=== PATIENT | male | born 1960 | race Caucasian/White ===

== ENCOUNTER 2022-11-27 18:19 | Inpatient (IN) | payer OTHER ==
[~2022-11-27] VITALS: Ht 162.6 cm; Wt 63.5 kg
[2022-11-27] MEDS: NACL 0.9% 1,000 ML IV SCH (02:38)
[2022-11-27 18:30] VITALS: BP 135/99
--- NOTE | 2022-11-27 18:35 | NUR ---
ABSCESS RIGHT SHOULDER X 3 DAYS WITH 8/10 PAIN. ALSO ENDORSING CHILLS AND INTERMITTENT FEVERS. PMH: HTN, HEP C MEDS: METHADONE
[2022-11-27] MEDS ORDERED: NACL 0.9% 2,000 ML IV ONE (21:00)
[2022-11-27 21:29] LABS: BASOPHILS % (AUTO) 0.3 % (0.0-2.0); HEMATOCRIT 44.2 % (36-52); HEMOGLOBIN 15.1 g/dL (12.0-18.0); LYMPHOCYTES % (AUTO) 5.4 % (20.5-51.1); MEAN CORPUSCULAR HEMOGLOBIN 31 pg (27-31); MEAN CORPUSCULAR HGB CONC 34 g/dL (33-37); MEAN CORPUSCULAR VOLUME 89.8 fL (80-94); MONOCYTES # (AUTO) 1.4 K/uL (0.8-1.0); NEUTROPHILS # (AUTO) 15.4 K/uL (1.8-7.7); NEUTROPHILS % (AUTO) 86.3 % (42.2-75.2); PLATELET COUNT (AUTO) 267 K/uL (140-450); RED BLOOD CELL COUNT(AUTO) 4.92 MIL/uL (4.20-6.10); RED CELL DISTRIBUTION WIDTH 13.1 % (11.6-13.7); WHITE BLOOD COUNT (AUTO) 17.9 K/uL (4.8-10.8)
--- NOTE | 2022-11-27 21:39 | NUR ---
PT TAKEN TO BED 7
[2022-11-27 21:48] LABS: ALBUMIN 3.6 g/dL (3.4-5.0); ANION GAP 18.1 (8-16); CARBON DIOXIDE 25.6 mmol/L (21-32); CREATININE 1.2 mg/dL (0.6-1.3); POTASSIUM 3.7 mmol/L (3.5-5.1); TOTAL BILIRUBIN 1.8 mg/dL (0.0-1.0)
--- NOTE | 2022-11-27 21:50 | NUR ---
62 Y/O F presents with abscess of R upper arm with pain 10/10. pt stated the sweeling of site feels like pressure x 3days. pt stated he is a active IV drug user and last time used was x1 week ago. pt stated he uses heroin and only heroin. pt is A&Ox4, skin intact, respirations even and unlabored. pt states he uses methadone 41mg daily. pmh- htn, hep C NKA meds-methadone
[2022-11-27] MEDS ORDERED: PIPERACILLIN/TAZOBACTAM 3.375 GM in DEXTROSE 5% 50 ML IV ONE (22:00)
[2022-11-27] MEDS ORDERED: VANCOMYCIN PER PHARMACY MC PRN (22:00)
[2022-11-27] MEDS ORDERED: VANCOMYCIN 1GM/DEXT 5% PREMIX 200 ML IV ONE (22:00)
[2022-11-27] MEDS ORDERED: VANCOMYCIN 1,000 MG VIAL ONE (22:31)
[2022-11-27] MEDS ORDERED: PIPERACILLIN/TAZOBACTAM 3.375 GM VIAL IV ONE (22:31)
--- NOTE | 2022-11-27 22:35 | NUR ---
PT RETURN FROM CT
[2022-11-27] MEDS ORDERED: DOCUSATE SODIUM 100 MG GELCAP PO PRN (23:25)
[2022-11-27] MEDS ORDERED: guaiFENesin DM 200/20 MG-10 ML 10 ML UDC PO PRN (23:25)
[2022-11-27] MEDS ORDERED: POTASSIUM CHLORIDE 10 MEQ TABER PO PRN (23:25)
[2022-11-27] MEDS ORDERED: ONDANSETRON 4 MG/2 ML VIAL IM/IVP PRN (23:25)
[2022-11-27] MEDS ORDERED: ACETAMINOPHEN 325 MG TAB PO PRN (23:25)
[2022-11-27] MEDS ORDERED: ZOLPIDEM 5 MG TAB PO PRN (23:25)
[2022-11-28 00:07] LABS: PROTHROMBIN TIME 11.5 secs (10.8-13.4)
[2022-11-28 00:20] LABS: AMYLASE 78 U/L (25-115); CHOL/HDL RATIO 2.1 (1-4.5); FREE T4 (FREE THYROXINE) 1.37 ng/dL (0.76-1.46); HDL CHOLESTEROL 55 mg/dL (40-60); LDL (CALC) 46 mg/dL (60-100); LIPASE 73 U/L (73-393); MAGNESIUM 1.9 mg/dL (1.8-2.4); PHOSPHORUS 3.6 mg/dL (2.5-4.9); THYROID STIMULATING HORMONE 2.92 uIU/mL (0.34-3.74); TRIGLYCERIDES 87 mg/dL (30-150)
--- NOTE | 2022-11-28 00:40 | NUR ---
pt ambulatory to restroom, back in room and on blending operator
[2022-11-28] MEDS ORDERED: METH-1550 PO (01:55)
--- NOTE | 2022-11-28 02:01 | NUR ---
pt ambulatory to restroom, back in room and on mixer operator helper hot metal
--- NOTE | 2022-11-28 02:25 | NUR ---
Patient will be admitted to care of Dr. Candelaria. Admited to Tele. Will go to [id number]. Belongings list completed. Report to Pat GARIBAY.
[2022-11-28 02:30] VITALS: BP 134/85
--- NOTE | 2022-11-28 02:30 | NUR ---
RECEIVED PT FROM ER. PATIENT IS AWAKE,ALERT AND ORIENTED X 4, AMBULATED FROM GURNEY TO THE BED WITH STEADY GAIT. COMPLAINING OF RIGHT ARM/SHOULDER PAIN, WILL MEDICATE ORDERED, REDNESS AND SWELLIGN NOTER ON THE RIGHT UPPER ARM/RIGHT SHOULDER, PICTURE TAKEN AND PLACED IN THE CHART. SKIN WARM AND DRY TO TOUCH. IVF STARTED IN THE LEFT AC ORDERED. BED IN THE LOWEST AND LOCKED POSITION FOR SAFETY, CALL LIGHT GIVEN TO PT, INSTRUCTION ON USE PROVIDED, ENCOURAGED TO CALL IF ASSISTANCE IS NEEDED. PT VERBALLY ACKNOWLEDGED.
[2022-11-28] MEDS: HYDROcodone/APAP 7.5/325 MG 1 TAB PO PRN ×4 (02:39→18:42)
--- NOTE | 2022-11-28 03:10 | NUR ---
The patient's care was reviewed and supervised by Marilyn Mijares RN.
--- NOTE | 2022-11-28 03:39 | NUR ---
RE-ASSESSED FOR PAIN, PT CURRENTLY ASLEEP. NO S/SX OF PAIN NOR DISCOMFORT.
[2022-11-28 04:00] VITALS: BP 132/84
[2022-11-28 04:29] LABS: APPEARANCE,URINE CLEAR (CLEAR); BILIRUBIN,URINE NEGATIVE (NEGATIVE); BLOOD, URINE NEGATIVE (NEGATIVE); COLOR,URINE YELLOW (YELLOW); LEUKOCYTE ESTERASE ,URINE NEGATIVE (NEGATIVE); NITRITE, URINE NEGATIVE (NEGATIVE); UGLUCOSE NEGATIVE (NEGATIVE)
[2022-11-28 04:43] LABS: BARBITURATE, URINE NEGATIVE ng/ml (NEG <=200); BENZODIAZEPINE, URINE NEGATIVE ng/mL (NEG <=200); CANNABINOID, URINE NEGATIVE ng/mL (NEG <=50); COCAINE, URINE NEGATIVE ng/mL (NEG <=300); OPIATE, URINE POSITIVE ng/mL (NEG <=2000); PHENCYCLIDINE SCREEN,URINE NEGATIVE ng/mL (NEG <=25)
[2022-11-28] MEDS ORDERED: PIPERACILLIN/TAZOBACTAM 3.375 GM VIAL IV ONE (05:19)
[2022-11-28] MEDS: PIPERACILLIN/TAZOBACTAM 3.375 GM in DEXTROSE 5% 50 ML IV SCH ×4 (05:21→23:06)
--- NOTE | 2022-11-28 05:22 | NUR ---
SPOKE WITH PITA OF LAB REGARDING REPEAT LACTIC ACID, WILL BE DRAWN WITH AM LABS, TRIED IN ER BUT UNSUCCESSFUL. SCREW MACHINE HAND MADE AWARE.
--- NOTE | 2022-11-28 06:23 | NUR ---
PATIENT IS AWAKE, ALERT AND ORIENTED X 4. PAIN OF 8/10 ON THE RIGHT ARM/SHOULDER, MEDIATED ORDERED. ALL NEEDS ATTENDED TO. SAFETY PRECAUTIONS MAINTAINED DURING THE SHIFT, CALL LIGHT REMAINS WITHIN REACH.
--- NOTE | 2022-11-28 07:05 | NUR ---
RECEIVED REPORT FROM TEST ENG NURSE FOR CONTINUITY OF CARE. PT STABLE AT THIS TIME RESTING IN THE BED.
[2022-11-28 07:11] LABS: ANION GAP 12.7 (8-16); CARBON DIOXIDE 26.1 mmol/L (21-32); CREATININE 1.1 mg/dL (0.6-1.3); POTASSIUM 3.8 mmol/L (3.5-5.1)
[2022-11-28 07:21] LABS: BASOPHILS % (AUTO) 0.1 % (0.0-2.0); EOSINOPHILS % (AUTO) 0.1 % (0.0-4.0); HEMATOCRIT 41.1 % (36-52); HEMOGLOBIN 13.9 g/dL (12.0-18.0); LYMPHOCYTES # (AUTO) 0.9 K/uL (2.0-11.5); MEAN CORPUSCULAR HEMOGLOBIN 30 pg (27-31); MEAN CORPUSCULAR HGB CONC 34 g/dL (33-37); MONOCYTES % (AUTO) 7.3 % (1.7-9.3); NEUTROPHILS # (AUTO) 12.4 K/uL (1.8-7.7); NEUTROPHILS % (AUTO) 86.5 % (42.2-75.2); PLATELET COUNT (AUTO) 221 K/uL (140-450); RED BLOOD CELL COUNT(AUTO) 4.57 MIL/uL (4.20-6.10); RED CELL DISTRIBUTION WIDTH 13.2 % (11.6-13.7); WHITE BLOOD COUNT (AUTO) 14.3 K/uL (4.8-10.8)
--- NOTE | 2022-11-28 07:25 | NUR ---
ENDORSED TO MICA MINER NURSE FOR CONTINUITY OF CARE. PT STABLE AT THIS TIME. Addendum: 11/28/22 at 2010 by Wendy Medina RN ENDORSED AT 1924
[2022-11-28 08:00] VITALS: BP 145/84
[2022-11-28] MEDS: PANTOPRAZOLE 40 MG TABEC PO SCH (08:47)
[2022-11-28] MEDS: NACL 0.9% 1,000 ML IV SCH ×2 (08:47→16:26)
--- NOTE | 2022-11-28 09:15 | NUR ---
PATIENT HAS BEEN SCREENED AND CATEGORIZED LOW NUTRITION RISK. PATIENT WILL BE SEEN WITHIN 7 DAYS OF ADMISSION. 12/04/[address] CANDIS KOHLER RD
[2022-11-28] MEDS ORDERED: METHADONE HCL ORAL SOLN 10 MG/ML SOLN PO SCH (10:00)
[2022-11-28 12:00] VITALS: BP 94/64
--- NOTE | 2022-11-28 12:30 | NUR ---
DC PLANN[age] YRS OLD MALE PATIENT WAS ADMITTED FROM HOME WITH A DX OF SEPSIS AND ABSCESS. PATIENT HAS A HX OF HEP C , IV DRUG USE AND HTN. PATIENT HAS RIGHT UPPER ARE ABSCESS. CT JEOVANNY SHOWED FLUID COLLECTION AND ABSCESS . CXR NORMAL. RAPID COVID TEST NEGATIVE. BLOOD CULTURE PENDING. ADMINISTERED IVF, IV ABX ZOSYN AND VANCOMYCIN. CONSULTED WITH SURGEON FOR POSSIBLE I&D. DC PLAN TO GO HOME WHEN STABLE. CM TO FOLLOW
[2022-11-28 16:00] VITALS: BP 103/70
--- NOTE | 2022-11-28 19:30 | NUR ---
RECEIVED REPORT FROM DAY SHIFT NURSE TANIA FOR CONTINUITY OF CARE. PATIENT IS A&O X4. PATIENT IS ON ROOM AIR, BREATHING IS NORMAL WITH SYMMETRICAL RISE AND FALL OF CHEST. IV IS AN 18G LAC, RUNNING NS 120. PATIENT IS SITTING HIGH-FOWLERS POSITION. BED IS IN LOWEST POSITION, WHEELS LOCKED, CALL LIGHT IN PLACE. WILL CONTINUE TO OBSERVE PATIENT.
[2022-11-28 20:00] VITALS: BP 90/56
--- NOTE | 2022-11-28 20:03 | NUR ---
PATIENT HAD A FEVER OF 100.5; CHECKED PATIENT'S CHART, TYLENOL WAS APPROPRIATE TO ADMINISTER. ADMINISTERED TYLENOL TO PATIENT. MEDICATION ADMINISTERED SUCCESSFULLY WITHOUT ANY ISSUES IN SWALLOWING. WILL CONTINUE TO OBSERVE PATIENT.
--- NOTE | 2022-11-28 22:20 | NUR ---
DR. YESSICA KOHLER CALLED AND ASKED ABOUT PATIENT'S LABS FOR PROCEDURE IN THE MORNING. INFORMED THE DR. OF PATIENT'S BLOOD CHEMISTRY AND HEMATOLOGY RESULTS; WELL URINE RESULTS. DR. KOHLER THANKED ME AND GAVE NO NEW ORDERS.
[2022-11-29] VITALS: BP 93/54
--- NOTE | 2022-11-29 00:04 | NUR ---
0000 IVPB WAS ADMINISTERED SUCCESSFULLY WITHOUT ANY ISSUES WITH IV AND NO SIGN OF ALLERGIC REACTION. FOOD AND DRINK WERE REMOVED FROM ROOM, PATIENT IS NOW NPO FOR PROCEDURE. PATIENT IS IN BED SITTING IN HIGH-FOWLERS POSITION. BED IS IN LOWEST POSITION, WHEELS LOCKED, CALL LIGHT IN PLACE. PATIENT'S TEMPERATURE IS 97.5, ADMINISTRATION OF TYLENOL AND INTERVENTIONS WERE EFFECTIVE. WILL CONTINUE TO OBSERVE PATIENT.
[2022-11-29] MEDS: NACL 0.9% 1,000 ML IV SCH ×3 (00:25→12:08)
[2022-11-29 04:00] VITALS: BP 103/65
--- NOTE | 2022-11-29 05:00 | NUR ---
PATIENT HAS SLEPT OFF AND ON THROUGHOUT THE NIGHT. BREATHING IS NORMAL WITH SYMMETRICAL RISE AND FALL OF CHEST. IV IS STILL RUNNING NS 120. BED IS IN LOWEST POSITION, WHEELS LOCKED, CALL LIGHT IN PLACE. WILL CONTINUE TO OBSERVE PATIENT.
[2022-11-29] MEDS: PIPERACILLIN/TAZOBACTAM 3.375 GM in DEXTROSE 5% 50 ML IV SCH ×3 (05:01→17:43)
[2022-11-29] MEDS ORDERED: PIPERACILLIN/TAZOBACTAM 3.375 GM in DEXTROSE 5% 50 ML IV SCH (06:00)
[2022-11-29 06:52] LABS: BASOPHILS % (AUTO) 0.2 % (0.0-2.0); EOSINOPHILS # (AUTO) 0.1 K/uL (0-0.4); EOSINOPHILS % (AUTO) 0.5 % (0.0-4.0); HEMATOCRIT 35.2 % (36-52); HEMOGLOBIN 12.2 g/dL (12.0-18.0); LYMPHOCYTES # (AUTO) 1.4 K/uL (2.0-11.5); LYMPHOCYTES % (AUTO) 8.1 % (20.5-51.1); MEAN CORPUSCULAR HEMOGLOBIN 30 pg (27-31); MEAN CORPUSCULAR HGB CONC 35 g/dL (33-37); MEAN CORPUSCULAR VOLUME 87.8 fL (80-94); MONOCYTES # (AUTO) 1.6 K/uL (0.8-1.0); NEUTROPHILS # (AUTO) 14.6 K/uL (1.8-7.7); NEUTROPHILS % (AUTO) 82.2 % (42.2-75.2); PLATELET COUNT (AUTO) 175 K/uL (140-450); RED BLOOD CELL COUNT(AUTO) 4.01 MIL/uL (4.20-6.10); RED CELL DISTRIBUTION WIDTH 12.9 % (11.6-13.7); WHITE BLOOD COUNT (AUTO) 17.8 K/uL (4.8-10.8)
[2022-11-29 06:57] LABS: ANION GAP 11.6 (8-16); CARBON DIOXIDE 23.2 mmol/L (21-32); CREATININE 1.1 mg/dL (0.6-1.3); POTASSIUM 3.8 mmol/L (3.5-5.1)
--- NOTE | 2022-11-29 07:18 | NUR ---
ENDORSED TO DAY SHIFT NURSE DÍAZ FOR CONTINUITY OF CARE. PATIENT IS STABLE.
[2022-11-29 08:00] VITALS: BP 119/68
--- NOTE | 2022-11-29 08:11 | NUR ---
OR NURSES ON UNIT TO TAKE PATIENT FOR SURGERY. WILL CONTINUE TO MONITOR WHEN PATIENT RETURNS ON UNIT.
[2022-11-29] MEDS ORDERED: BUPIVACAINE-MPF 0.25% 30 ML VIAL INJ ONE (08:14)
[2022-11-29] MEDS ORDERED: SEVOFLURANE 250 ML BTL INH ONE (08:23)
[2022-11-29] MEDS ORDERED: HYDROmorphone 1 MG/ML AMP IVP PRN ×2 (08:25→09:10)
[2022-11-29] MEDS ORDERED: HYDROcodone/APAP 5/325 MG 1 TAB TAB PO PRN (08:25)
[2022-11-29] MEDS ORDERED: fentaNYL citrate 0.05 MG/ML VIAL ONE (08:31)
[2022-11-29] MEDS ORDERED: PROPOFOL 200 MG/20 ML VIAL IV ONE (08:51)
[2022-11-29] MEDS ORDERED: ONDANSETRON 4 MG/2 ML VIAL ONE (08:51)
[2022-11-29] MEDS ORDERED: KETOROLAC 30 MG/ML VIAL ONE (08:51)
[2022-11-29] MEDS ORDERED: METOCLOPRAMIDE 10 MG/2 ML INJ VIAL ONE (08:51)
[2022-11-29] MEDS ORDERED: hydrALAZINE 20 MG/ML VIAL IVP PRN (09:02)
[2022-11-29] MEDS ORDERED: LABETALOL 20 MG/4 ML VIAL IVP PRN (09:02)
[2022-11-29] MEDS ORDERED: LACTATED RINGERS 1,000 ML IV SCH (09:10)
--- NOTE | 2022-11-29 09:10 | NUR ---
DC PLAN SW ATTEMPTED TO SEE PT AT BEDSIDE TO COMPLETE ASSESSMENT, HOWEVER, PT NOT IN ROOM. SPOKE WITH NURSE WHO REPORTS PT CURRENTLY IN SURGERY. SW TO FOLLOW
[2022-11-29] MEDS: METHADONE HCL ORAL SOLN 10 MG/ML SOLN PO SCH (10:48)
[2022-11-29] MEDS: PANTOPRAZOLE 40 MG TABEC PO SCH (10:48)
[2022-11-29 12:00] VITALS: BP 138/74
[2022-11-29 16:00] VITALS: BP 102/56
--- NOTE | 2022-11-29 19:21 | NUR ---
GAVE REPORT TO BRAYAN EMT DISPATCHER NURSE. PT IN STABLE CONDITION.
--- NOTE | 2022-11-29 19:22 | NUR ---
RECD. RESTING IN BED, RESPIRATION EVEN AND UNLABORED. IV OF NS INFUSING AT 120 ML/HR, LEFT AC G20. AMBULATORY TO THE BR. INCISION AND DRAINAGE AT THE RIGHT SHOULDER,ARM COVERED WITH DRESSING DRY AND INTACT. ON IV ANTIBIOTICS. PLACED A PILLOW UNDER RIGHT SHOULDER/ARM FOR COMFORT. DENIES PAIN AT THIS TIME, 010.
--- NOTE | 2022-11-29 19:23 | NUR ---
Patient's Plan of Care was discussed and reviewed with CHARLES: BRAYAN
[2022-11-29 20:00] VITALS: BP 100/62
--- NOTE | 2022-11-29 20:00 | NUR ---
ACCIDENTALLY PULLED OUT HIS IV. WILL INSERT A NEW IV LINE.
--- NOTE | 2022-11-29 22:45 | NUR ---
PATIENT IS A HARDSTICK. NEW IV LINE INSERTED BY CHARGE NURSE KYARA AT THE RIGHT HAND G24.
[2022-11-30] VITALS: BP 110/62
--- NOTE | 2022-11-30 | NUR ---
IN BED, RESTING COMFORTABLY WATCHING TV.
[2022-11-30] MEDS: PIPERACILLIN/TAZOBACTAM 3.375 GM in DEXTROSE 5% 50 ML IV SCH ×4 (00:19→17:32)
[2022-11-30] MEDS: NACL 0.9% 1,000 ML IV SCH ×2 (01:58→09:45)
--- NOTE | 2022-11-30 02:00 | NUR ---
SLEEPING COMFORTABLY IN BED. RESPIRATION EVEN AND UNLABORED.
[2022-11-30 04:00] VITALS: BP 118/77
--- NOTE | 2022-11-30 04:00 | NUR ---
VS STABLE. NO COMPLAINT OF PAIN 0/10.
--- NOTE | 2022-11-30 06:00 | NUR ---
AMBULATED TO THE AND VOIDED. GAIT STEADY. NO COMPLAINT OF SHOULDER/ARM PAIN.
[2022-11-30 06:50] LABS: BASOPHILS # (AUTO) 0.1 K/uL (0.00-0.22); BASOPHILS % (AUTO) 0.5 % (0.0-2.0); EOSINOPHILS # (AUTO) 0.2 K/uL (0-0.4); EOSINOPHILS % (AUTO) 2.3 % (0.0-4.0); HEMATOCRIT 33.6 % (36-52); HEMOGLOBIN 11.6 g/dL (12.0-18.0); LYMPHOCYTES # (AUTO) 1.6 K/uL (2.0-11.5); LYMPHOCYTES % (AUTO) 15.4 % (20.5-51.1); MEAN CORPUSCULAR HEMOGLOBIN 31 pg (27-31); MEAN CORPUSCULAR HGB CONC 35 g/dL (33-37); MEAN CORPUSCULAR VOLUME 88.9 fL (80-94); MONOCYTES # (AUTO) 0.8 K/uL (0.8-1.0); MONOCYTES % (AUTO) 7.7 % (1.7-9.3); NEUTROPHILS # (AUTO) 7.7 K/uL (1.8-7.7); NEUTROPHILS % (AUTO) 74.1 % (42.2-75.2); PLATELET COUNT (AUTO) 190 K/uL (140-450); RED BLOOD CELL COUNT(AUTO) 3.78 MIL/uL (4.20-6.10); RED CELL DISTRIBUTION WIDTH 13.2 % (11.6-13.7); WHITE BLOOD COUNT (AUTO) 10.4 K/uL (4.8-10.8)
[2022-11-30 07:00] LABS: ANION GAP 11.2 (8-16); CARBON DIOXIDE 24.4 mmol/L (21-32); POTASSIUM 3.6 mmol/L (3.5-5.1)
--- NOTE | 2022-11-30 07:25 | NUR ---
RECEIVED PT FROM NIGHT RN, PT IS AWAKE, ALERT AND ORIENTED, ON ROOM AIR, SEATED ON THE BED WITH SIDE RAILS UP AND CALL LIGHT WITHIN REACH, PT IS S/P I&D ON THE RIGHT SHOULDER, DRESSING INTACT, IV LINE NOTED ON THE RIGHT HAND G. 24 ON SALINE LOCK, NO SIGN OF DISTRESS NOTED AND WILL CONTINUE TO MONITOR PT.
[2022-11-30 08:00] VITALS: BP 123/73
[2022-11-30] MEDS: PANTOPRAZOLE 40 MG TABEC PO SCH (08:52)
[2022-11-30] MEDS: METHADONE HCL ORAL SOLN 10 MG/ML SOLN PO SCH (08:56)
[2022-11-30] MEDS ORDERED: AMOX-999 PO (09:58)
--- NOTE | 2022-11-30 11:09 | NUR ---
PT WAS GIVEN IVPB ZOSYN NOW
--- NOTE | 2022-11-30 11:20 | NUR ---
RECEIVED ORDER FOR PATIENT TO GET HOME HEALTH FOR WOUND CARE. FAXED [facility] FAX [facility], AND [facility]. WAITING ON CONFIRMATIONS TO FOLLOW UP. Addendum: 11/30/22 at 1306 by CHINEDU CARLSON CM [facility], AND [facility] ALL DECLINED PT. FAXED TO [facility] AND [facility] WILL FOLLOW UP WITH ACCEPTING FACILITIES. Addendum: 12/01/22 at 0911 by CHINEDU CARLSON CM [facility], AND [facility] ALL DECLINED PATIENT DUE TO BEING NOT CONTRACTED WITH [employer] OR [employer] REQUESTED LIST OF HOME HEALTH AGENCIES FROM INSURANCE.
--- NOTE | 2022-11-30 11:24 | NUR ---
DC PLANNING ASSESSMENT COMPLETE PLEASE REFER TO ASSESSMENT FOR ADDITIONAL DETAILS PT REPORTS DC PLAN IS TO RETURN HOME PROVIDING TRANSPORTATION, WHEN MEDICALLY STABLE. PT AWARE CM AND DC SUPERVISOR CORE DRILLING WORKING ON IDENTIFYING HH AGENCY. Addendum: 11/30/22 at 1125 by Roselyn TEJADA Amended: Links added.
[2022-11-30 12:00] VITALS: BP 118/78
[2022-11-30 16:00] VITALS: BP 121/77
--- NOTE | 2022-11-30 16:15 | NUR ---
WOUND CARE DRESSING WAS DONE TO PT'S WOUND ON RIGHT UPPER ARM, PICTURE WAS TAKEN AND ATTACHED TO CHART
--- NOTE | 2022-11-30 19:03 | NUR ---
DISCHARGED PT TO HOME, PT CAR PARKED IN ER, PT WILL BE DRIVING HIMSELF, IV LINE REMOVED,, DISCHARGE TEACHING AND INSTRUCTIONS GIVEN TO PT AND VERBALIZED UNDERSTANDING, PT IS STABLE AT THIS TIME.
--- NOTE | 2022-12-01 08:11 | NUR ---
WOUND CONSULT NOT DONE, PT. DISCHARGED.
== END 2022-11-30 19:03 | disposition home or self-care (01) | DRG 872 ==
LOC: MED 18:19 → MTU 23:34 → MMU 23:34 → MTU 11-28 01:44
PROVIDERS: ADMIT Family Medicine; ATTEND Family Medicine
PROC: 0X980ZZ Drainage of Right Upper Arm, Open Approach (ICD-10-PCS; principal; 2022-11-29 07:30)
DX: A41.9 Sepsis, unspecified organism (principal); E87.1 Hypo-osmolality and hyponatremia; L02.413 Cutaneous abscess of right upper limb; D64.9 Anemia, unspecified; Z20.822 Contact with and (suspected) exposure to COVID-19; I10 Essential (primary) hypertension
CPT/HCPCS: 36415; 71045; 73201; 76881; 80048; 80053; 80305; 81003; 82150; 83036; 83605; 83690; 83735; 83880; 84100; 84436; 84439; 84443; 84479; 84484; 85025; 85610; 85730; 87040; 87070; 87075; 87081; 87205; 93005; 96365; 96368; 99291; J1885; J2405; J2543; J2704; J2765; J3010; J3370; J3490; J7030; J7060; Q0092; Q9967